=== PATIENT | female | born 1965 | race Caucasian/White ===

== ENCOUNTER 2022-09-30 12:29 | Outpatient (CLI) | payer OTHER ==
--- NOTE | 2022-09-30 15:28 | XRAY Report ---
PROCEDURE: Knee 2 View LT INDICATIONS: PAIN IN LEFT KNEE. TECHNIQUE: 2 views of the left knee(s) were acquired. COMPARISON: None. FINDINGS: Bones: No fractures or dislocations. No suspicious bony lesions. Soft tissues: No knee joint effusion. No suspicious soft tissue calcifications or masses. IMPRESSION: No acute bony abnormality. Reviewed by: Soco Burgos MD on 09/30/2022 3:26 PM PDT Approved by: Soco Burgos MD on 09/30/2022 3:26 PM PDT Station ID: [id number]
--- NOTE | 2022-09-30 15:29 | XRAY Report ---
PROCEDURE: Ankle 3 View LT INDICATIONS: PAIN IN LEFT KNEE AND LEFT ANKLE JOINT PAIN. TECHNIQUE: 3 views of the ankle were acquired. COMPARISON: None. FINDINGS: Bones: There is a small osseous fragment projecting inferior to the distal fibula in the distal aspe ct of the tibiofibular articulation. No other fractures are present. There is normal alignment. Soft tissues: Small tibiotalar joint effusion. Achilles tendon appears normal. IMPRESSION: Small osseous fragment of uncertain chronicity may be small avulsion fracture off the talus or distal fibula.. Correlate with site tenderness. Reviewed by: Soco Burgos MD on 09/30/2022 3:28 PM PDT Approved by: Soco Burgos MD on 09/30/2022 3:28 PM PDT Station ID: [id number]
== END 2022-09-30 23:59 | disposition home or self-care (01) ==
LOC: DI.N 12:29
PROVIDERS: ATTEND Registered Nurse
DX: M25.562 Pain in left knee (principal); M25.572 Pain in left ankle and joints of left foot

== ENCOUNTER 2022-10-07 08:00 | Outpatient (CLI) | payer OTHER ==
--- NOTE | 2022-10-07 17:04 | XRAY Report ---
PROCEDURE: Ankle 3 View LT INDICATIONS: LEFT ANKLE INJURY TECHNIQUE: 3 views of the ankle were acquired. COMPARISON: 09/30/2022 FINDINGS: Bones: Small osseous fragments inferior to the distal fibular tip are unchanged in size and morpholo gy, potential avulsion fracture fragments. A potential donor site along the lateral corner of the iban us at the distal fibulotalar articulation is now better seen. No other acute or subacute fractures ar e identified. The ankle mortise is intact. Soft tissues: No tibiotalar joint effusion. Achilles tendon appears normal. IMPRESSION: 1. Stable positions of probable avulsion fracture fragments off the lateral talus and inferior fibula . Reviewed by: Soco Burgos MD on 10/07/2022 5:03 PM PDT Approved by: Soco Burgos MD on 10/07/2022 5:03 PM PDT Station ID: [id number]
== END 2022-10-07 23:59 | disposition home or self-care (01) ==
LOC: DI.WOS 08:00
PROVIDERS: ATTEND Orthopaedic Surgery
DX: S92.122A Displaced fracture of body of left talus, initial encounter for closed fracture (principal)

== ENCOUNTER 2022-10-29 15:57 | Outpatient (CLI) | payer OTHER ==
--- NOTE | 2022-10-30 09:56 | CT Report ---
PROCEDURE: LOWER EXTREMITY WO - LT INDICATIONS: DISPLACED FRACTURE OF LEFT FIBULA TECHNIQUE: Noncontrast 3-mm axial sections acquired from the distal tibial shaft to the talar dome, with coronal and sagittal reformats. For radiation dose reduction, the following was used: automated exposure c ontrol, adjustment of mA and/or kV according to patient size. COMPARISON: None. FINDINGS: Image quality: Excellent. Bones: Well-defined small curvilinear calcifications are noted adjacent to tip of lateral malleolus consistent with slightly displaced lateral malleolus tip fracture. No fracture of the tibia is seen. No fracture is noted in talus, calcaneus or tarsal bones. No suspicious bony lesions. Mild midfoot an d hindfoot joint osteoarthritic changes are seen. No gross CT evidence of osteochondral injuries of t alar dome. Soft tissues: There is no full-thickness ankle tendon rupture. No significant joint effusion or calc ified intra-articular loose bodies. No abnormal soft tissue calcifications. Plantar fascia is intact. Impression: 1. Slightly comminuted avulsion fracture involving tip of lateral malleolus. No other fracture or dis location. No suspicious bony lesions. 2. Mild midfoot and hindfoot joint osteoarthritis. No gross osteochondral injuries. 3. No significant ankle joint effusion or calcified intra-articular loose bodies. No abnormal soft ti ssue calcifications. No gross full-thickness ankle tendon rupture. Reviewed by: Oral Chacko MD on 10/30/2022 9:55 AM PDT Approved by: Oral Chacko MD on 10/30/2022 9:55 AM PDT Station ID: [id number]
== END 2022-10-29 15:58 | disposition home or self-care (01) ==
LOC: DI 15:57
PROVIDERS: ATTEND Orthopaedic Surgery
DX: S82.62XA Displaced fracture of lateral malleolus of left fibula, initial encounter for closed fracture (principal); M19.072 Primary osteoarthritis, left ankle and foot

== ENCOUNTER 2023-08-19 12:13 | Outpatient (CLI) | payer OTHER ==
[2023-08-19] MEDS ORDERED: DIATRIZOATE MEGLU/DIATRIZO SOD 30 ML BOTTLE PO ONE (12:21)
[2023-08-19] MEDS ORDERED: iohexoL-300 100 ML VIAL ONE (12:21)
[2023-08-19] MEDS: DIATRIZOATE MEGLU/DIATRIZO SOD 30 ML BOTTLE PO ONE (15:26)
[2023-08-19] MEDS: iohexoL-300 100 ML VIAL IVP ONE (15:27)
--- NOTE | 2023-08-20 11:43 | CT Report ---
PROCEDURE: Abdomen/Pelvis W INDICATIONS: RUQ PAIN CONTRAST: omni 300 100 ml TECHNIQUE: After the administration of intravenous contrast, a CT scan of the abdomen and pelvis was performed. Images were recorded and evaluated at appropriate window settings. Reformats: coronal and sagittal. F or radiation dose reduction, the following was used: automated exposure control, adjustment of mA and /or kV according to patient size. COMPARISON: None. FINDINGS: Image quality: Diagnostic. Lower chest: Unremarkable. Liver: No solid mass. Gallbladder and biliary tree: Surgically absent gallbladder. Mild dilation of the extrahepatic duct u p to 7 mm with smooth tapering which can be seen postcholecystectomy Spleen: No splenomegaly. Pancreas: No pancreatic ductal dilation. Adrenals: No adrenal nodule. Kidneys and ureters: No hydronephrosis. No definite renal stones seen. No renal cystic lesion which r equires follow up. No solid mass. Stomach, bowel and peritoneum: No bowel distension. No pathologic free fluid. Limited evaluation of t he bowel due to paucity of intra-abdominal fat . Nonvisualized appendix; no secondary signs of append icitis. Lymph nodes: No central or retroperitoneal adenopathy. Vessels: No infrarenal aortic aneurysm. PELVIS Reproductive organs: Large number of distended venous collaterals around the uterus/adnexa bilaterall y. Suggestion of a retroverted uterus. Bladder: No abnormal wall thickening, accounting for underdistention. Pelvic lymph nodes: No pelvic adenopathy by size criteria. Bones: No aggressive osseous abnormality. Other: No significant ventral or inguinal hernia. IMPRESSION: 1.Very large number of distended venous collaterals around the uterus/adnexa bilaterally. Correlate w ith symptoms of pelvic congestion syndrome. Interventional radiology consult for embolization may be indicated. 2. History of cholecystectomy 3. Somewhat limited evaluation of the bowel due to paucity of intra-abdominal fat. Reviewed by: Miky Hernandez MD on 08/20/2023 11:41 AM PDT Approved by: Miky Hernandez MD on 08/20/2023 11:41 AM PDT Station ID: [id number]
== END 2023-08-19 12:14 | disposition home or self-care (01) ==
LOC: DI 12:13
PROVIDERS: ATTEND Physician Assistant
DX: R10.11 Right upper quadrant pain (principal); I87.8 Other specified disorders of veins; Z90.49 Acquired absence of other specified parts of digestive tract
CPT/HCPCS: 74177; Q9963; Q9967

== ENCOUNTER 2023-09-11 10:53 | Outpatient (CLI) | payer OTHER ==
--- NOTE | 2023-09-11 11:18 | XRAY Report ---
PROCEDURE: Chest 2V INDICATIONS: LOW RHONCI ON LUNGS TECHNIQUE: 2 views of the chest were acquired. COMPARISON: None. FINDINGS: Surgical changes and devices: None. Lungs and pleura: No pleural effusions or pneumothorax. Lungs are clear. Mediastinum: Mediastinal contours appear normal. Heart size is normal. Bones and chest wall: No suspicious bony lesions. Overlying soft tissues appear unremarkable. IMPRESSION: No acute cardiopulmonary process. Reviewed by: Belén Rollins MD on 09/11/2023 11:17 AM PDT Approved by: Belén Rollins MD on 09/11/2023 11:17 AM PDT Station ID: [id number]
== END 2023-09-11 10:54 | disposition home or self-care (01) ==
LOC: DI 10:53
PROVIDERS: ATTEND Physician Assistant
DX: R09.89 Other specified symptoms and signs involving the circulatory and respiratory systems (principal)

== ENCOUNTER 2023-10-24 14:00 | Outpatient (CLI) | payer OTHER ==
--- NOTE | 2023-10-29 10:29 | Mammography Report ---
BILATERAL DIGITAL SCREENING MAMMOGRAM 3D/2D: 10/24/2023 CLINICAL: Routine screening. Comparison is made to exams dated: 09/18/2022 mammogram, 09/14/2021 mammogram, 09/12/2020 mammogram - [facility], 10/09/2017 mammogram, and 05/29/2016 mammogram - outside location. Both breasts are extremely dense, which lowers the sensitivity of mammography (category d />75% gland ular tissue). No significant masses, calcifications, or other findings are seen in either breast. There has been no significant interval change. IMPRESSION: NEGATIVE There is no mammographic evidence of malignancy. A 1 year screening mammogram is recommended. Based on the Tyrer Cuzick model (a risk assessment model) the patient's lifetime risk is 14.9% and he r 10 year risk is 5.9%. According to the ACR, ACS, and NCCN guidelines, an annual breast MRI exam reta ng with mammogram is recommended if the patient's lifetime risk is 20% or greater. This exam was interpreted at Station ID: [id number]. NOTE: For mammograms, a report in lay terms will be sent to the patient. Approximately 15% of breast malignancies will not be visualized mammographically. In the management of a palpable breast mass, a negative mammogram must not discourage biopsy of a clinically suspicious lesion. Electronically Signed By: Marquise bronson/hermelindo:10/28/2023 17:26:20 ACR BI-RADS Category 1: Negative 3341F PARENCHYMAL PATTERN: (VD) - The breast(s) demonstrate(s) extremely dense parenchyma, limiting the sen sitivity of mammography. BI-RADS CATEGORY: (1) - 1 RECOMMENDATION: (ANNUAL) - Recommend routine annual screening mammography. [id number] 1 year screening LATERALITY: (B)
== END 2023-10-24 14:01 | disposition home or self-care (01) ==
LOC: DI 14:00
PROVIDERS: ATTEND Obstetrics & Gynecology
DX: Z12.31 Encounter for screening mammogram for malignant neoplasm of breast (principal); R92.343 Mammographic extreme density, bilateral breasts